=== PATIENT | male | born 1975 | race African-American/Black ===

== ENCOUNTER 2019-03-18 20:44 | Inpatient (IN) | payer OTHER, SELFPAY ==
[~2019-03-18 20:44] MED LIST: Iopamidol-370 76% 500 ML 1 ML ONE
[2019-03-18] MEDS ORDERED: Adacel (T-DAP) 0.5 ML SYRINGE ONE (20:52)
[2019-03-18 21:13] LABS: Hemoglobin 13.7 g/dL (14.0-18.0); Mean Corpuscular HGB CONC 31.9 g/dL (32.0-36.0); Mean Corpuscular Hemoglobin 22.4 pg (27.0-31.0); Mean Corpuscular Volume 70.3 fL (78.0-98.0); RBC Distribution Width 14.6 % (11.5-14.5); Red Blood Cell (RBC) Count 6.12 mill/uL (4.70-6.10)
[2019-03-18 21:15] LABS: INR-International Normal Ratio 1.1; PTT 26.4 SEC (22.9-36.1); Prothrombin Time 14.3 SEC (12.0-14.7)
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
[2019-03-18 21:25] LABS: ALT (SGPT) 129 U/L (8-55); AST (SGOT) 127 U/L (5-34); Albumin 4.4 g/dL (3.5-5.0); Alcohol 233 mg/dL (Less than 10); Alkaline Phosphatase 66 U/L (40-110); Anion Gap 20 mmol/L (10-20); BUN (Urea Nitrogen) 12 mg/dL (8.9-20.6); Bilirubin, Total 0.8 mg/dL (0.2-1.2); Calc. Creatinine Clearance 0 mL/min (70-130); Calcium 7.8 mg/dL (7.8-10.44); Carbon Dioxide 16 mmol/L (22-29); Chloride 108 mmol/L (98-107); Estimated GFR-MDRD Greater than 90; Globulin 2.6 g/dL (2.4-3.5); Glucose 112 mg/dL (70-105); Lipase 82 U/L (8-78); Potassium 3.6 mmol/L (3.5-5.1); Sodium 140 mmol/L (136-145)
[2019-03-18] MEDS ORDERED: Fentanyl 100 MCG/2 ML VIAL ONE ×2 (21:25→21:44)
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
[2019-03-18 21:28] LABS: Band 8 % (5-11); Lymphocytes 28 % (21-51); MDiff Complete? YES; Mean Platelet Volume 8.3 fL (7.4-10.4); Monocytes 5 % (0-10); Neutrophil 59 % (42-75); Platelet Count 279 thou/uL (130-400); RBC Morphology Normal; White Blood Cell (WBC) Count 23.4 thou/uL (4.8-10.8)
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
[2019-03-18] MEDS ORDERED: fentaNYL Citrate/PF 2,000 MCG in Sodium Chloride 0.9% 60 ML IV SCH (21:29)
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
[2019-03-18] MEDS ORDERED: Piperacillin/Tazobactam 4.5 GM VIAL ONE (21:55)
[2019-03-18 22:12] LABS: Actual Bicarbonate (HCO3a) 16.5 mEq/L (22-28); Analyzer IN Cardio ER; Base Excess (BEa) -12.8 mEq/L (-2.0 to +3.0); CO2 Tension 51.5 mmHg (35.0-45.0); Calcium, Ionized 1.07 mmol/L (1.12-1.30); Carboxyhemoglobin (COHb) 2.8 gm% (0.0-3.0); Hemoglobin (Hb) 13.7 g/dL (14.0-18.0); O2 Tension (PaO2) 69.9 mmHg (80.0-100.0); Potassium - ABG Lab 3.66 mmol/L (3.70-5.30)
[2019-03-18 22:15] LABS: Puncture Site RR; pH, Arterial 7.12 (7.35-7.45)
[2019-03-18 22:16] LABS: ALV-art Gradient 222.225 (0-20)
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
[2019-03-18] MEDS ORDERED: hydrALAZINE 20 MG/ML VIAL SLOW IVP PRN (22:21)
[2019-03-18] MEDS ORDERED: Dextrose 5% in Water 1,000 ML IV PRN (22:21)
[2019-03-18] MEDS ORDERED: Dextrose 50% Abboject 50 ML SYRINGE SLOW IVP PRN (22:21)
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
[2019-03-18] MEDS ORDERED: Ventilator Sedation Protocol 1 EACH FS ONE (22:27)
[2019-03-18] MEDS ORDERED: Sodium Chloride 0.9% 1,000 ML IV SCH (22:30)
[2019-03-18] MEDS ORDERED: Fentanyl BOLUS 250 ML IVPB PRN (22:34)
[2019-03-18] MEDS ORDERED: Propofol 1,000 MG/100 ML VIAL IV PRN (22:34)
[2019-03-18] MEDS ORDERED: Morphine 2 MG/ML SYRINGE SLOW IVP PRN (22:34)
[2019-03-18] MEDS ORDERED: Propofol BOLUS 1,000 MG/100 ML VIAL IV PRN (22:34)
[2019-03-18] MEDS ORDERED: DISCONTINUE PREVIOUS NARCOTIC PAIN MEDICATIONS AND BENZODIAZEPINES FS SCH (22:34)
[2019-03-18 22:52] LABS: Phosphorus 4.9 mg/dL (2.3-4.7)
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
--- NOTE | 2019-03-18 23:00 | OP ---
DATE OF PROCEDURE: 03/18/2019 PREOPERATIVE DIAGNOSES: 1. A 3 cm laceration, left eyelid. 2 cm laceration to left scalp and 2 cm laceration to posterior ear. 2. Open wound, right lower extremity. POSTOPERATIVE DIAGNOSES: 1. A 3 cm laceration, left eyelid. 2 cm laceration to left scalp and 2 cm laceration to posterior ear. 2. Open wound, right lower extremity. PROCEDURES PERFORMED: Washout and closure of above lacerations. ANESTHESIA: Local. ESTIMATED BLOOD LOSS: Minimal. COMPLICATIONS: None. DESCRIPTION OF PROCEDURE: The right superior eyelid and laceration to the scalp just above were irrigated, prepped and draped in a sterile fashion. A 5-0 Prolene interrupted sutures were used to close them. The laceration to the left posterior was closed using laura. The open wound to the right lower extremity is probed and found to not go down to bone. There is muscle exposed. The wound was irrigated copiously until returns were clear. It was closed loosely using a 2-0 nylon suture and laura. Sterile dressings were placed. The patient tolerated the procedures well. Job ID: [id number]
[2019-03-18] MEDS: Ketorolac Tromethamine 30 MG/ML VIAL IVP SCH (23:09)
[2019-03-18] MEDS: Lorazepam 2 MG/ML VIAL SLOW IVP PRN (23:09)
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
[2019-03-19 02:05] LABS: Bacteria/HPF None Seen HPF (None Seen); Bilirubin Negative (Negative); Blood, Urine 3+ (Negative); Clarity Clear (Clear); Glucose, Urine (Dipstick) Normal (Negative); Leukocyte Negative Leu/uL (Negative); Nitrite Negative (Negative); Protein, Urine (Dipstick) 30 mg/dL (Neg-Trace); Squamous Epithelial 0-3 HPF (0-3); Urobilinogen Normal mg/dL (Less than 2)
[2019-03-19 02:15] LABS: Lactic Acid 6.4 mmol/L (0.5-2.2)
[2019-03-19] MEDS ORDERED: Multivit, Adult Inj 10 ML VIAL IV SCH (02:15)
[2019-03-19] MEDS ORDERED: Calcium Chloride 1 GM/10 ML Abboject SYRINGE IVP SCH (02:15)
[2019-03-19] MEDS ORDERED: Multivitamins, Adult 10 ML, Thiamine HCl 100 MG, Folic Acid 1 MG in Dextrose 5 %-0.45 %... IV SCH (02:30)
[2019-03-19 02:35] LABS: Amphetamine Not Detected (NotDetected); Barbiturates Screen Not Detected (NotDetected); Benzodiazepine Screen Detected (NotDetected); Cocaine Metabolite Screen Not Detected (NotDetected); Medtox Control Line Valid? VALID (VALID); Medtox Reader # READER 4; Methadone Not Detected (NotDetected); Methamphetamine Not Detected (NotDetected); Opiate Screen Not Detected (NotDetected); Oxycodone Screen Not Detected (NotDetected); Phencyclidine (PCP) Not Detected (NotDetected); THC/Cannabinoid Screen Not Detected (NotDetected); Tricyclic Screen Not Detected (NotDetected)
[2019-03-19] MEDS ORDERED: Sodium Chloride 0.9% 500 ML IV SCH (03:00)
--- NOTE | 2019-03-19 03:02 | OP ---
DATE OF PROCEDURE: 03/18/2019 PREOPERATIVE DIAGNOSIS: A 6 cm laceration to right buttock. PROCEDURE PERFORMED: Washout and closure of the wound. ANESTHESIA: Local. ESTIMATED BLOOD LOSS: Minimal. COMPLICATIONS: None. DESCRIPTION OF PROCEDURE: The right buttock laceration was irrigated and prepped and draped in a sterile fashion. A 2-0 Prolene interrupted suture was used to close the wound. The patient tolerated the procedure well. Job ID: [id number]
[2019-03-19] MEDS ORDERED: Potassium Chloride 40 MEQ in Premix Bag 1 BAG IVPB SCH (03:15)
[2019-03-19] MEDS ORDERED: Lactated Ringer's 500 ML IV SCH (03:15)
[2019-03-19] MEDS: Lorazepam 2 MG/ML VIAL SLOW IVP PRN ×2 (03:20→05:32)
[2019-03-19] MEDS: Piperacillin/Tazobactam 3.375 GM in Sodium Chloride 0.9% 100 ML IVPB SCH ×4 (03:24→22:26)
[2019-03-19] MEDS ORDERED: Lactated Ringer's 1,000 ML IV SCH (03:30)
[2019-03-19 04:49] LABS: Phosphorus 5.3 mg/dL (2.3-4.7)
[2019-03-19 04:52] LABS: Anion Gap 18 mmol/L (10-20); BUN (Urea Nitrogen) 13 mg/dL (8.9-20.6); Calc. Creatinine Clearance 168 mL/min (70-130); Calcium 8.7 mg/dL (7.8-10.44); Carbon Dioxide 17 mmol/L (22-29); Chloride 110 mmol/L (98-107); Estimated GFR-MDRD 88; Glucose 129 mg/dL (70-105); Magnesium 1.7 mg/dL (1.6-2.6); Potassium 4.2 mmol/L (3.5-5.1); Sodium 141 mmol/L (136-145)
[2019-03-19 05:05] LABS: Band 16 % (5-11); Eosinophils 1 % (0-10); Hemoglobin 12.8 g/dL (14.0-18.0); Lymphocytes 16 % (21-51); MDiff Complete? YES; Mean Corpuscular HGB CONC 32.4 g/dL (32.0-36.0); Mean Corpuscular Hemoglobin 22.6 pg (27.0-31.0); Mean Corpuscular Volume 69.8 fL (78.0-98.0); Mean Platelet Volume 8.4 fL (7.4-10.4); Microcytosis SLIGHT = 6-15 cells (100X) (0-5/hpf); Monocytes 8 % (0-10); Neutrophil 58 % (42-75); Platelet Count 289 thou/uL (130-400); Platelet Morphology Comment Appears Adequate; RBC Distribution Width 14.4 % (11.5-14.5); Reactive Lymphocytes 1 % (0-10); Red Blood Cell (RBC) Count 5.65 mill/uL (4.70-6.10); White Blood Cell (WBC) Count 14.8 thou/uL (4.8-10.8)
[2019-03-19] MEDS: Ketorolac Tromethamine 30 MG/ML VIAL IVP SCH ×4 (05:33→23:27)
[2019-03-19] MEDS ORDERED: Propofol BOLUS 1,000 MG/100 ML VIAL IV PRN (06:56)
[2019-03-19] MEDS ORDERED: Acetaminophen 650 MG Suppository PR PRN (06:59)
[2019-03-19] MEDS: Propofol 1,000 MG/100 ML VIAL IV PRN ×4 (07:23→15:14)
[2019-03-19 07:49] LABS: Actual Bicarbonate (HCO3a) 21.5 mEq/L (22-28); Base Excess (BEa) -3.1 mEq/L (-2.0 to +3.0); CO2 Tension 37.3 mmHg (35.0-45.0); Calcium, Ionized 1.14 mmol/L (1.12-1.30); Carboxyhemoglobin (COHb) 1.1 gm% (0.0-3.0); Hemoglobin (Hb) 13.4 g/dL (14.0-18.0); O2 Tension (PaO2) 114.1 mmHg (80.0-100.0); Potassium - ABG Lab 4.77 mmol/L (3.70-5.30); pH, Arterial 7.38 (7.35-7.45)
[2019-03-19] MEDS: Acetaminophen 650 MG/20.3 ML UDCUP PO SCH ×4 (08:06→19:39)
[2019-03-19] MEDS: Oxazepam 10 MG CAP PO SCH ×3 (08:06→23:27)
[2019-03-19] MEDS: Lactated Ringer's 1,000 ML IV SCH ×3 (08:07→16:42)
[2019-03-19 08:10] LABS: ALV-art Gradient 267.075 (0-20); Puncture Site L.R.
--- NOTE | 2019-03-19 08:41 | RAD ---
EXAM: Portable chest PROVIDED CLINICAL HISTORY: Respiratory insufficiency COMPARISON: 03/18/2019 FINDINGS: Mild improvement in bilateral perihilar airspace disease. Additional significant interval change with respect to the prior examination is not apparent. IMPRESSION: As above.
[2019-03-19] MEDS: Famotidine/PF 20 mg/2ml Vial SLOW IVP SCH ×2 (09:03→22:05)
[2019-03-19] MEDS: Folic Acid 1 MG TAB PO SCH (09:03)
[2019-03-19] MEDS: Silver Sulfadiazine 1% Cream 50 GM JAR TOP SCH ×2 (09:03→22:09)
[2019-03-19] MEDS: Multivitamin W/ Minerals 1 TAB PO SCH (09:03)
[2019-03-19] MEDS: Thiamine 100 MG TAB PO SCH (09:03)
[2019-03-19 10:19] LABS: Lactic Acid 2.1 mmol/L (0.5-2.2)
[2019-03-19] MEDS ORDERED: Acetaminophen/Codeine 30-300mg Tablet PO PRN (13:29)
[2019-03-19] MEDS: Gabapentin 300 MG CAP PO SCH ×2 (14:37→22:05)
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
[2019-03-19] MEDS: Acetaminophen/Codeine 30-300mg Tablet PO PRN (20:09)
[2019-03-19] MEDS: Senokot S 8.6-50 MG TAB PO SCH (22:05)
[2019-03-20] MEDS: Lidocaine 5% Patch TD SCH (00:10)
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
[2019-03-20] MEDS: Acetaminophen 650 MG/20.3 ML UDCUP PO SCH ×2 (01:33→07:50)
[2019-03-20] MEDS: Acetaminophen/Codeine 30-300mg Tablet PO PRN ×4 (03:41→21:18)
[2019-03-20] MEDS: Lactated Ringer's 1,000 ML IV SCH ×4 (03:45→17:11)
[2019-03-20] MEDS: Piperacillin/Tazobactam 3.375 GM in Sodium Chloride 0.9% 100 ML IVPB SCH (04:05)
[2019-03-20] MEDS: Ketorolac Tromethamine 30 MG/ML VIAL IVP SCH (05:25)
[2019-03-20] MEDS: Oxazepam 10 MG CAP PO SCH ×4 (07:50→23:09)
[2019-03-20] MEDS: Folic Acid 1 MG TAB PO SCH (07:51)
[2019-03-20] MEDS: Famotidine 20 MG TAB PO SCH ×2 (07:51→20:44)
[2019-03-20] MEDS: Gabapentin 300 MG CAP PO SCH ×3 (07:51→20:44)
[2019-03-20] MEDS: Polyethylene Glycol 3350 17 GM Packet PO SCH (07:53)
[2019-03-20] MEDS: Multivitamin W/ Minerals 1 TAB PO SCH (07:53)
[2019-03-20] MEDS: Senokot S 8.6-50 MG TAB PO SCH ×2 (07:54→20:44)
[2019-03-20] MEDS: Silver Sulfadiazine 1% Cream 50 GM JAR TOP SCH ×2 (07:55→20:45)
[2019-03-20] MEDS: Thiamine 100 MG TAB PO SCH (07:55)
[2019-03-20 08:09] LABS: Hemoglobin 10.7 g/dL (14.0-18.0); Mean Corpuscular Hemoglobin 23.3 pg (27.0-31.0); Mean Corpuscular Volume 70.5 fL (78.0-98.0); Mean Platelet Volume 8.1 fL (7.4-10.4); Platelet Count 200 thou/uL (130-400); RBC Distribution Width 14.1 % (11.5-14.5); Red Blood Cell (RBC) Count 4.59 mill/uL (4.70-6.10); White Blood Cell (WBC) Count 9.8 thou/uL (4.8-10.8)
[2019-03-20 08:10] LABS: Anion Gap 11 mmol/L (10-20); BUN (Urea Nitrogen) 9 mg/dL (8.9-20.6); CK (CPK) 5105 U/L (30-200); Calc. Creatinine Clearance 200 mL/min (70-130); Calcium 8.2 mg/dL (7.8-10.44); Carbon Dioxide 24 mmol/L (22-29); Chloride 106 mmol/L (98-107); Estimated GFR-MDRD Greater than 90; Glucose 118 mg/dL (70-105); Magnesium 1.8 mg/dL (1.6-2.6); Phosphorus 2.5 mg/dL (2.3-4.7); Potassium 3.6 mmol/L (3.5-5.1); Sodium 137 mmol/L (136-145)
[2019-03-20 08:43] LABS: Band 28 % (5-11); Eosinophils 2 % (0-10); Hypochromia SLIGHT = 6-15 cells (100X) (0-5/hpf); Lymphocytes 20 % (21-51); MDiff Complete? YES; Microcytosis MODERATE=15-30 cells (100X) (0-5/hpf); Monocytes 2 % (0-10); Neutrophil 48 % (42-75); Platelet Morphology Comment Appears Adequate; Polychromasia SLIGHT = 2-3 cells (100X) (0-2/hpf)
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
[2019-03-20] MEDS: Enoxaparin Sodium 30 MG/0.3 ML SYRINGE SC SCH ×2 (09:19→20:44)
[2019-03-20] MEDS: cefTRIAXone\\ROCEPHIN 2 GM in Sodium Chloride 0.9% 100 ML IVPB SCH (09:19)
--- NOTE | 2019-03-20 09:43 | RAD ---
PORTABLE UPRIGHT FRONTAL CHEST RADIOGRAPH: Date: 03/20/2019 COMPARISON: 03/19/2019. HISTORY: Possible aspiration. FINDINGS: The endotracheal tube and nasogastric tube have been removed since the prior exam. There is a stable left-sided vascular catheter. There is patchy nonspecific air space disease in the right infrahilar r egion, slightly worsened. There is also hazy nonspecific increased density in the left perihilar otoniel on and left lung base, slightly worsened since the prior exam. IMPRESSION: Worsening perihilar density, left greater than right. Findings may be on the basis of aspiration or v olume loss. Recommend follow-up PA and lateral imaging of the chest following treatment to document r esolution. POS: NOEMY
[2019-03-20] MEDS ORDERED: Magnesium 2 GM/50 ML 2 GM in Premix Bag 1 BAG IVPB SCH (10:45)
[2019-03-20] MEDS ORDERED: Potassium Phosphate 15 MMOL in Sodium Chloride 0.9% 250 ML 250 ML IVPB SCH (10:45)
--- NOTE | 2019-03-20 11:08 | RAD ---
Left shoulder 3 views: 03/20/2019 COMPARISON: None HISTORY: Trauma FINDINGS: There is nonspecific incompletely imaged airspace disease within the visualized left lung. Incompletely imaged left-sided vascular catheter. Moderate glenohumeral degenerative change. Mild degenerative change of left acromioclavicular joint. No displaced clavicle fracture. No acute fractur e or dislocation at the level of the left shoulder. IMPRESSION: No displaced fracture or evidence of dislocation seen.
[2019-03-20] MEDS: Acetaminophen/Codeine 30-300mg Tablet PO SCH ×3 (11:09→21:18)
--- NOTE | 2019-03-20 11:29 | RAD ---
2 VIEWS LEFT HUMERUS: Date: 03/20/2019 PROVIDED CLINICAL HISTORY: Pain status post injury. FINDINGS: Evaluation is limited as the examination was performed in the portable manner. There is no gross evid ence for fracture. If there is persistent clinical concern, conservative management and follow-up marvin ging are advised. IMPRESSION: As above. POS: OFF
[2019-03-20] MEDS ORDERED: Acetaminophen 500 MG TAB PO SCH (12:00)
[2019-03-20] MEDS: Acetaminophen 325 MG TAB PO SCH ×3 (12:16→23:24)
[2019-03-20] MEDS: cloNIDine 0.1 MG TAB PO SCH ×3 (12:28→23:11)
[2019-03-20] MEDS: Lidocaine Patch Removal 1 EACH TOP SCH (12:37)
[2019-03-20 14:25] VITALS: BMI 40.8
[2019-03-20] MEDS: Cyclobenzaprine 10 MG TAB PO PRN (18:09)
[2019-03-20] MEDS ORDERED: Polyethylene Glycol 3350 17 GM Packet PO SCH (20:45)
--- NOTE | 2019-03-21 00:14 | PRG ---
DATE OF SERVICE: 03/20/2019 SUBJECTIVE: The patient was seen this evening on the surgical floor. The patient is currently awake, alert, in no distress. The patient continues to have some moderate right-sided rib pain. The patient reports feeling constipated and needing something more for the constipation. He states that he usually has several bowel movements a day. The patient has not had a bowel movement since admission. The patient remains with a well-fitting Mead collar in place. OBJECTIVE: VITAL SIGNS: Stable, afebrile. GENERAL: Middle aged gentleman, moderate distress due to pain. RESPIRATORY: Equal chest rise and fall, expiratory wheezes noted. PLAN: Continue supportive care. We will have RT give a breathing treatment now, as the patient has been wheezing. Continue to monitor urinary output. Continue maintenance fluids LR at 200 mL/hour as his CK is elevated still. We will increase the patient's bowel regimen and add lactulose until patient has a bowel movement. The MRI of C-spine was unable to be done due to patient's size. I did explain to the patient and that we will continue Mead collar as long as he has pain and patient could get an MRI outpatient. I also explained that the patient does need to take the Serax as scheduled due to him having seizures when he drinks alcohol. Job ID: [id number] [facility]
[2019-03-21] MEDS: Lidocaine 5% Patch TD SCH (01:02)
[2019-03-21] MEDS: Lactated Ringer's 1,000 ML IV SCH ×4 (01:02→12:41)
[2019-03-21] MEDS: Acetaminophen/Codeine 30-300mg Tablet PO SCH ×5 (03:54→23:33)
[2019-03-21] MEDS: Acetaminophen 325 MG TAB PO SCH ×4 (05:34→23:32)
[2019-03-21] MEDS: cloNIDine 0.1 MG TAB PO SCH ×2 (05:35→11:44)
[2019-03-21 06:13] LABS: Anion Gap 11 mmol/L (10-20); BUN (Urea Nitrogen) 4 mg/dL (8.9-20.6); CK (CPK) 3440 U/L (30-200); Calc. Creatinine Clearance 237 mL/min (70-130); Calcium 8.2 mg/dL (7.8-10.44); Carbon Dioxide 27 mmol/L (22-29); Chloride 104 mmol/L (98-107); Estimated GFR-MDRD Greater than 90; Glucose 128 mg/dL (70-105); Magnesium 1.9 mg/dL (1.6-2.6); Phosphorus 2.7 mg/dL (2.3-4.7); Potassium 3.6 mmol/L (3.5-5.1); Sodium 138 mmol/L (136-145)
[2019-03-21 06:14] LABS: Band 16 % (5-11); Eosinophils 3 % (0-10); Hemoglobin 10.1 g/dL (14.0-18.0); Lymphocytes 27 % (21-51); MDiff Complete? YES; Mean Corpuscular HGB CONC 31.9 g/dL (32.0-36.0); Mean Corpuscular Hemoglobin 22.4 pg (27.0-31.0); Mean Corpuscular Volume 70.2 fL (78.0-98.0); Mean Platelet Volume 8.9 fL (7.4-10.4); Monocytes 11 % (0-10); Neutrophil 43 % (42-75); Platelet Count 201 thou/uL (130-400); RBC Distribution Width 13.9 % (11.5-14.5); Red Blood Cell (RBC) Count 4.49 mill/uL (4.70-6.10); White Blood Cell (WBC) Count 10.5 thou/uL (4.8-10.8)
[2019-03-21] MEDS: Oxazepam 10 MG CAP PO SCH ×3 (06:43→23:32)
[2019-03-21] MEDS: cefTRIAXone\\ROCEPHIN 2 GM in Sodium Chloride 0.9% 100 ML IVPB SCH (08:23)
[2019-03-21] MEDS: Thiamine 100 MG TAB PO SCH (08:25)
[2019-03-21] MEDS: Polyethylene Glycol 3350 17 GM Packet PO SCH (08:25)
[2019-03-21] MEDS: Folic Acid 1 MG TAB PO SCH (08:25)
[2019-03-21] MEDS: Famotidine 20 MG TAB PO SCH ×2 (08:25→20:12)
[2019-03-21] MEDS: Multivitamin W/ Minerals 1 TAB PO SCH (08:25)
[2019-03-21] MEDS: Gabapentin 300 MG CAP PO SCH ×3 (08:25→20:12)
[2019-03-21] MEDS: Senokot S 8.6-50 MG TAB PO SCH ×2 (08:25→20:11)
[2019-03-21] MEDS: Enoxaparin Sodium 30 MG/0.3 ML SYRINGE SC SCH ×2 (08:25→20:16)
[2019-03-21] MEDS: Silver Sulfadiazine 1% Cream 50 GM JAR TOP SCH ×2 (08:57→20:12)
[2019-03-21] MEDS ORDERED: Polyethylene Glycol 3350 17 GM Packet PO SCH (09:00)
[2019-03-21] MEDS: Lidocaine Patch Removal 1 EACH TOP SCH (11:45)
[2019-03-21] MEDS: Ketorolac Tromethamine 30 MG/ML VIAL IVP SCH ×2 (11:50→20:12)
[2019-03-21] MEDS: Furosemide 20 MG/2 ML VIAL SLOW IVP SCH ×2 (13:06→21:23)
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
--- NOTE | 2019-03-21 13:36 | RAD ---
EXAM: 2 views of the left ankle HISTORY: Ankle pain COMPARISON: None FINDINGS: 3 views of the left ankle shows no evidence of acute fracture or dislocation. Moderate diff use soft tissue swelling is seen. No degenerative changes are present. IMPRESSION: No evidence of acute osseous abnormality.
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
[2019-03-21] MEDS ORDERED: Iopamidol-370 76% 500 ML 1 ML ONE (15:18)
[2019-03-21] MEDS ORDERED: Iopamidol 370 76% 50 ML VIAL FS ONE (15:18)
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
[2019-03-21] MEDS: cloNIDine 0.2 MG TAB PO SCH ×2 (17:34→23:33)
[2019-03-21] MEDS: Cyclobenzaprine 10 MG TAB PO PRN (17:34)
[2019-03-21] MEDS ORDERED: Lactated Ringer's 1,000 ML IV SCH (22:55)
[2019-03-22] MEDS: Lidocaine 5% Patch TD SCH (00:21)
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
[2019-03-22] MEDS: Ketorolac Tromethamine 30 MG/ML VIAL IVP SCH ×2 (04:05→11:49)
[2019-03-22] MEDS: Acetaminophen/Codeine 30-300mg Tablet PO SCH ×2 (05:42→11:48)
[2019-03-22] MEDS: cloNIDine 0.2 MG TAB PO SCH ×2 (05:42→11:45)
[2019-03-22] MEDS: Acetaminophen 325 MG TAB PO SCH ×2 (05:42→11:48)
[2019-03-22] MEDS: Furosemide 20 MG/2 ML VIAL SLOW IVP SCH (05:42)
[2019-03-22] MEDS: Cyclobenzaprine 10 MG TAB PO PRN ×2 (05:42→15:00)
[2019-03-22 06:07] LABS: #Eosinphils 0.4 thou/uL (0.0-0.7); #Lymphocytes 2.3 thou/uL (1.20-3.40); #Monocytes 0.6 thou/uL (0.11-0.59); %Basophils 0.2 % (0.0-1.0); %Eosinophils 4.9 % (0.0-10.0); %Lymphocytes 27.5 % (21.0-51.0); %Monocytes 7.4 % (0.0-10.0); %Neutrophils 60.1 % (42.0-75.0); Hemoglobin 9.3 g/dL (14.0-18.0); Mean Corpuscular Hemoglobin 22.7 pg (27.0-31.0); Mean Corpuscular Volume 70.9 fL (78.0-98.0); Mean Platelet Volume 8.3 fL (7.4-10.4); Platelet Count 212 thou/uL (130-400); RBC Distribution Width 13.9 % (11.5-14.5); White Blood Cell (WBC) Count 8.3 thou/uL (4.8-10.8)
[2019-03-22 06:35] LABS: Anion Gap 10 mmol/L (10-20); BUN (Urea Nitrogen) 4 mg/dL (8.9-20.6); CK (CPK) 2107 U/L (30-200); Calc. Creatinine Clearance 223 mL/min (70-130); Calcium 8.2 mg/dL (7.8-10.44); Carbon Dioxide 29 mmol/L (22-29); Chloride 101 mmol/L (98-107); Estimated GFR-MDRD Greater than 90; Glucose 147 mg/dL (70-105); Magnesium 1.9 mg/dL (1.6-2.6); Phosphorus 3.9 mg/dL (2.3-4.7); Potassium 3.2 mmol/L (3.5-5.1); Sodium 137 mmol/L (136-145)
[2019-03-22] MEDS ORDERED: Potassium Phosphate 30 MMOL in Sodium Chloride 0.9% 250 ML 250 ML IVPB SCH (06:45)
[2019-03-22] MEDS ORDERED: Potassium Phosphate 15 MMOL in Sodium Chloride 0.9% 250 ML 250 ML IVPB SCH (06:45)
[2019-03-22] MEDS: Oxazepam 10 MG CAP PO SCH (07:30)
[2019-03-22] MEDS: Folic Acid 1 MG TAB PO SCH (08:58)
[2019-03-22] MEDS: Thiamine 100 MG TAB PO SCH (08:58)
[2019-03-22] MEDS: Senokot S 8.6-50 MG TAB PO SCH (08:58)
[2019-03-22] MEDS: Gabapentin 300 MG CAP PO SCH ×2 (08:58→15:00)
[2019-03-22] MEDS: cefTRIAXone\\ROCEPHIN 2 GM in Sodium Chloride 0.9% 100 ML IVPB SCH (08:58)
[2019-03-22] MEDS: Multivitamin W/ Minerals 1 TAB PO SCH (08:58)
[2019-03-22] MEDS: Polyethylene Glycol 3350 17 GM Packet PO SCH (08:58)
[2019-03-22] MEDS: Enoxaparin Sodium 30 MG/0.3 ML SYRINGE SC SCH (08:58)
[2019-03-22] MEDS: Famotidine 20 MG TAB PO SCH (08:58)
[2019-03-22] MEDS ORDERED: Furosemide 20 MG/2 ML VIAL SLOW IVP SCH (10:00)
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
[2019-03-22 11:48] VITALS: BP 128/83; TEMP 97.7
[2019-03-22] MEDS: Silver Sulfadiazine 1% Cream 50 GM JAR TOP SCH (11:50)
[2019-03-22] MEDS: Lidocaine Patch Removal 1 EACH TOP SCH (11:51)
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
== END 2019-03-22 15:39 | disposition home or self-care (01) | DRG 208 ==
LOC: ERS 20:44 → CCU 21:02 → SURG B 03-20 10:59
PROVIDERS: ADMIT Surgery; ATTEND Surgery
PROC: 05H633Z Insertion of Infusion Device into Left Subclavian Vein, Percutaneous Approach (ICD-10-PCS; principal; 2019-03-18)
PROC: 5A1935Z Respiratory Ventilation, Less than 24 Consecutive Hours (ICD-10-PCS; 2019-03-18)
PROC: 08QNXZZ Repair Right Upper Eyelid, External Approach (ICD-10-PCS; 2019-03-18)
PROC: 0HQ3XZZ Repair Left Ear Skin, External Approach (ICD-10-PCS; 2019-03-18)
PROC: 0HQ0XZZ Repair Scalp Skin, External Approach (ICD-10-PCS; 2019-03-18)
PROC: 0HQ8XZZ Repair Buttock Skin, External Approach (ICD-10-PCS; 2019-03-18)
PROC: 0HQKXZZ Repair Right Lower Leg Skin, External Approach (ICD-10-PCS; 2019-03-18)
PROC: 0BH17EZ Insertion of Endotracheal Airway into Trachea, Via Natural or Artificial Opening (ICD-10-PCS; 2019-03-18)
DX: S27.322A Contusion of lung, bilateral, initial encounter (principal); J18.1 Lobar pneumonia, unspecified organism; J69.0 Pneumonitis due to inhalation of food and vomit; J96.90 Respiratory failure, unspecified, unspecified whether with hypoxia or hypercapnia; S02.832A Fracture of medial orbital wall, left side, initial encounter for closed fracture; S22.41XA Multiple fractures of ribs, right side, initial encounter for closed fracture; M62.82 Rhabdomyolysis; S01.112A Laceration without foreign body of left eyelid and periocular area, initial encounter; S01.01XA Laceration without foreign body of scalp, initial encounter; S01.312A Laceration without foreign body of left ear, initial encounter; S31.811A Laceration without foreign body of right buttock, initial encounter; S81.811A Laceration without foreign body, right lower leg, initial encounter; G40.909 Epilepsy, unspecified, not intractable, without status epilepticus; I10 Essential (primary) hypertension; V03.99XA Pedestrian with other conveyance injured in collision with car, pick-up truck or van, unspecified whether traffic or nontraffic accident, initial encounter; Y93.89 Activity, other specified; Y92.89 Other specified places as the place of occurrence of the external cause; E87.6 Hypokalemia
CPT/HCPCS: 36415; 36556; 51702; 70450; 70486; 71045; 71260; 72125; 72170; 74177; 80048; 80053; 80306; 80307; 81003; 81015; 82550; 82805; 83605; 83690; 83735; 84100; 85007; 85025; 85027; 85610; 85730; 86850; 86900; 86901; 87070; 87086; 87205; 90471; 90715; 94002; 94003; 96365; 96367; 96368; 96376; G0390; J0690; J0696; J1650; J1885; J1940; J2060; J2543; J2704; J3010; J3411; J3475; J3480; J3490; J7042; J7050; J7620; L0120; Q9967; S0028

== ENCOUNTER 2019-03-28 15:39 | Outpatient (CLI) | payer OTHER ==
--- NOTE | 2019-03-28 16:33 | ULT ---
EXAM: Bilateral lower extremity venous ultrasound HISTORY: Bilateral lower extremity pain and edema COMPARISON: None TECHNIQUE: Multiplanar grayscale and color Doppler images were obtained in a bilateral lower extremit y venous ultrasound. Spectral analysis of the Doppler waveforms were performed. FINDINGS: The bilateral common femoral vein, profunda femoral veins, superficial femoral veins, and p opliteal veins are normal in appearance without visible thrombus. These vessels demonstrate normal compression, flow, and augmentation. The bilateral posterior tibial veins and greater saphenous veins are patent without evidence of throm bus. IMPRESSION: No evidence of DVT.
== END 2019-03-28 15:40 | disposition home or self-care (01) ==
LOC: BICULT 15:39
PROVIDERS: ATTEND Surgery
DX: M62.82 Rhabdomyolysis (principal)
CPT/HCPCS: 93970

== ENCOUNTER 2019-11-05 04:34 | Emergency (ER) | payer OTHER ==
[2019-11-05 05:19] LABS: Bilirubin Negative (Negative); Blood, Urine Negative (Negative); Clarity Clear (Clear); Glucose, Urine (Dipstick) Greater than 1000 mg/dL (Negative); Ketone, Urine 20 mg/dL (Negative); Leukocyte Negative Leu/uL (Negative); Nitrite Negative (Negative); Protein, Urine (Dipstick) Negative (Neg-Trace); Specific Gravity, Urine 1.017 (1.002-1.036); Urobilinogen Normal mg/dL (Less than 2)
[2019-11-05 06:09] LABS: Hemoglobin 14.3 g/dL (14.0-18.0); Mean Corpuscular HGB CONC 32.2 g/dL (32.0-36.0); Mean Corpuscular Hemoglobin 22.9 pg (27.0-31.0); Mean Corpuscular Volume 71.1 fL (78.0-98.0); Mean Platelet Volume 8.5 fL (7.4-10.4); Platelet Count 276 thou/uL (130-400); RBC Distribution Width 14.9 % (11.5-14.5); Red Blood Cell (RBC) Count 6.25 mill/uL (4.70-6.10); White Blood Cell (WBC) Count 9.6 thou/uL (4.8-10.8)
[2019-11-05 06:20] LABS: ALT (SGPT) 27 U/L (8-55); AST (SGOT) 28 U/L (5-34); Albumin 4.2 g/dL (3.5-5.0); Alcohol 178 mg/dL (Less than 10); Alkaline Phosphatase 92 U/L (40-110); Anion Gap 22 mmol/L (10-20); BUN (Urea Nitrogen) 8 mg/dL (8.9-20.6); Bilirubin, Total 0.4 mg/dL (0.2-1.2); CK (CPK) 136 U/L (30-200); Calc. Creatinine Clearance 0 mL/min (70-130); Calcium 8.4 mg/dL (7.8-10.44); Carbon Dioxide 16 mmol/L (22-29); Chloride 102 mmol/L (98-107); Estimated GFR-MDRD Greater than 90; Globulin 2.7 g/dL (2.4-3.5); Glucose 408 mg/dL (70-105); Potassium 4.1 mmol/L (3.5-5.1); Protein, Total 6.9 g/dL (6.0-8.3); Sodium 136 mmol/L (136-145)
[2019-11-05 06:40] LABS: #Basophils 0.1 thou/uL (0.0-0.2); #Eosinphils 0.1 thou/uL (0.0-0.7); #Lymphocytes 3.8 thou/uL (1.20-3.40); #Monocytes 0.5 thou/uL (0.11-0.59); #Neutrophils 5.2 thou/uL (1.40-6.50); %Basophils 0.7 % (0.0-1.0); %Eosinophils 0.7 % (0.0-10.0); %Lymphocytes 39.5 % (21.0-51.0); %Monocytes 4.9 % (0.0-10.0); %Neutrophils 54.2 % (42.0-75.0); MDiff Complete? YES; Microcytosis SLIGHT = 6-15 cells (100X) (0-5/hpf); Platelet Morphology Comment Appears Adequate
--- NOTE | 2019-11-05 10:21 | CT ---
PRELIMINARY REPORT/[facility]/EMERGENCY AFTER HOURS PROCEDURE: EXAM: CT Abdomen and Pelvis Without Intravenous Contrast CLINICAL HISTORY: Pt c/o right flank and RLQ abdominal pain TECHNIQUE: Axial computed tomography images of the abdomen and pelvis without intravenous contrast. CONTRAST: None. COMPARISON: None provided. FINDINGS: LUNG BASES: No basilar airspace consolidation or pleural effusion. LIVER: Unremarkable. GALLBLADDER AND BILE DUCTS: Unremarkable. No calcified stone. No ductal dilation. PANCREAS: Unremarkable. SPLEEN: Unremarkable. ADRENAL GLANDS: Unremarkable. KIDNEYS, URETERS, AND BLADDER: Unremarkable. No hydronephrosis or nephrolithiasis. No ureteral or aileen dder calculi. STOMACH AND BOWEL: No obstruction. No wall thickening. No CT evidence of colitis or acute diverticuli tis. APPENDIX: The appendix appears normal. PERITONEUM: No free fluid. No free air. LYMPH NODES: No lymphadenopathy. REPRODUCTIVE: Unremarkable as visualized. VASCULATURE: No aortic aneurysm. ABDOMINAL WALL AND SOFT TISSUES: Unremarkable. BONES: No fracture or suspicious osseous abnormality. IMPRESSION: No acute intra-abdominal or pelvic abnormality. ELECTRONICALLY SIGNED BY: Sandoval Torres MD Nov 05, 2019 5:50:13 AM CDT FINAL REPORT CT ABDOMEN AND PELVIS WITHOUT CONTRAST: I agree with the preliminary report given by Dr. Sandoval Torres of [facility]. POS: OFF
== END 2019-11-05 06:30 | disposition home or self-care (01) ==
LOC: ERS 04:34
DX: F10.129 Alcohol abuse with intoxication, unspecified (principal); R10.9 Unspecified abdominal pain; R56.9 Unspecified convulsions; R10.813 Right lower quadrant abdominal tenderness; Z86.73 Personal history of transient ischemic attack (TIA), and cerebral infarction without residual deficits; F17.210 Nicotine dependence, cigarettes, uncomplicated; Y90.6 Blood alcohol level of 120-199 mg/100 ml
CPT/HCPCS: 36415; 74176; 80053; 80307; 81003; 82550; 85025

== ENCOUNTER 2022-06-07 21:41 | Inpatient (IN) | payer OTHER, SELFPAY ==
[2022-06-07] MEDS ORDERED: Ketamine In 0.9 % NaCl 50 MG/5 ML SYRINGE ONE ×2 (22:18→22:57)
[2022-06-07] MEDS ORDERED: levETIRAcetam 500 MG/5 ML VIAL ONE (23:11)
[2022-06-07 23:23] LABS: Actual Bicarbonate (HCO3v) 17 mEq/L (22-28); Base Excess -7.7 mEq/L (-2.0 to +3.0); Chloride (VBG) 104 mmol/L (98-106); Hemoglobin (Hb) 14.7 g/dL (13.1-17.2); Potassium (VBG) 3.61 mmol/L (3.70-5.30); Sodium 138.9 mmol/L (133-146); pH (venous) 7.34 (7.32-7.43)
[2022-06-07 23:44] LABS: ALT (SGPT) 29 U/L (8-55); AST (SGOT) 21 U/L (5-34); Albumin 4.5 g/dL (3.5-5.0); Alkaline Phosphatase 59 U/L (40-110); Anion Gap 20 mmol/L (10-20); BUN (Urea Nitrogen) 12 mg/dL (8.9-20.6); Bilirubin, Total 0.6 mg/dL (0.2-1.2); Calc. Creatinine Clearance 0 mL/min (70-130); Calcium 9.3 mg/dL (7.8-10.44); Carbon Dioxide 18 mmol/L (22-29); Chloride 107 mmol/L (98-107); Estimated GFR 102; Globulin 2.7 g/dL (2.4-3.5); Glucose 90 mg/dL (70-105); Potassium 3.7 mmol/L (3.5-5.1); Protein, Total 7.2 g/dL (6.0-8.3); Sodium 141 mmol/L (136-145)
[2022-06-07 23:46] LABS: Acetaminophen Less than 10.0 mcg/mL (10.0-30.0); Alcohol 116 mg/dL (Less than 10); Salicylate Less than 8.0 mg/dL (15.0-30.0)
[2022-06-07 23:51] LABS: Hemoglobin 14.5 g/dL (14.0-18.0); Mean Corpuscular HGB CONC 33.4 g/dL (32.0-36.0); Mean Corpuscular Hemoglobin 23.6 pg (27.0-31.0); Mean Corpuscular Volume 70.6 fl (78.0-98.0); Mean Platelet Volume 7.7 fL (7.4-10.4); Platelet Count 310 10x3/uL (130-400); RBC Distribution Width 14.8 % (11.5-14.5); Red Blood Cell (RBC) Count 6.14 mill/uL (4.70-6.10); White Blood Cell (WBC) Count 11.6 10x3/uL (4.8-10.8)
[2022-06-08 00:10] LABS: MDiff Complete? YES; Microcytosis SLIGHT = 6-15 cells (100X) (0-5/hpf)
[2022-06-08] MEDS ORDERED: Lorazepam 2 MG/ML VIAL SLOW IVP PRN (00:13)
[2022-06-08] MEDS ORDERED: Calcium Carbonate 500 MG ChewTAB PO PRN (00:16)
[2022-06-08] MEDS ORDERED: Ondansetron ODT 4 MG TAB PO PRN (00:16)
[2022-06-08] MEDS ORDERED: Acetaminophen 325 MG TAB PO PRN (00:16)
[2022-06-08] MEDS ORDERED: Acetaminophen 650 MG Suppository PR PRN (00:16)
[2022-06-08] MEDS ORDERED: Ondansetron PF 4 MG/2 ML Vial IVP PRN (00:16)
[2022-06-08 00:19] LABS: Band 1 % (5-11); Eosinophils 1 % (0-10); Lymphocytes 64 % (21-51); Monocytes 1 % (0-10); Neutrophil 30 % (42-75); Reactive Lymphocytes 3 % (0-10)
[2022-06-08] MEDS ORDERED: Dextrose 5%-Lactated Ringers 1,000 ML IV SCH (00:30)
[2022-06-08] MEDS ORDERED: Sodium Bicarb 50 MEQ/50 ML VIAL IVP SCH (00:30)
[2022-06-08 02:59] VITALS: BMI 41.2
[2022-06-08 06:44] LABS: Magnesium 1.8 mg/dL (1.6-2.6)
[2022-06-08 07:00] LABS: Amphetamine Not Detected (NotDetected); Barbiturates Screen Not Detected (NotDetected); Benzodiazepine Screen Not Detected (NotDetected); Cocaine Metabolite Screen Not Detected (NotDetected); Methadone Not Detected (NotDetected); Methamphetamine Not Detected (NotDetected); Opiate Screen Not Detected (NotDetected); Oxycodone Screen Not Detected (NotDetected); Phencyclidine (PCP) Not Detected (NotDetected); THC/Cannabinoid Screen Not Detected (NotDetected); Tricyclic Screen Not Detected (NotDetected)
[2022-06-08] MEDS: MULTIVIT/IRON SULF/FOLIC ACID 1 EACH TAB PO SCH (08:49)
[2022-06-08] MEDS: Famotidine 20 MG TAB PO SCH ×2 (08:49→21:34)
[2022-06-08] MEDS: levETIRAcetam 500 MG/5 ML VIAL SLOW IVP SCH ×2 (08:50→21:34)
[2022-06-08] MEDS: Famotidine/PF 20 mg/2ml Vial SLOW IVP SCH ×2 (09:36→21:34)
[2022-06-08 11:22] LABS: Hemoglobin A1c 5.9 % (4.0-6.0)
[2022-06-08 11:29] LABS: Cardiac Risk 4.6 (Less than 4.5)
[2022-06-08 15:35] LABS: #Basophils 0.1 thou/uL (0.0-0.2); #Eosinphils 0.3 thou/uL (0.0-0.7); #Lymphocytes 4.3 thou/uL (1.20-3.40); #Monocytes 0.7 thou/uL (0.11-0.59); #Neutrophils 5.9 thou/uL (1.40-6.50); %Basophils 0.7 % (0.0-1.0); %Eosinophils 2.7 % (0.0-10.0); %Lymphocytes 38.1 % (21.0-51.0); %Monocytes 6.4 % (0.0-10.0); %Neutrophils 52.1 % (42.0-75.0); Hemoglobin 14.2 g/dL (14.0-18.0); Mean Corpuscular HGB CONC 32.7 g/dL (32.0-36.0); Mean Corpuscular Volume 70.4 fl (78.0-98.0); Platelet Count 287 10x3/uL (130-400); RBC Distribution Width 14.6 % (11.5-14.5); Red Blood Cell (RBC) Count 6.19 mill/uL (4.70-6.10); White Blood Cell (WBC) Count 11.3 10x3/uL (4.8-10.8)
[2022-06-08] MEDS: Lactated Ringer's 1,000 ML IV SCH (15:59)
[2022-06-08 16:07] LABS: ALT (SGPT) 25 U/L (8-55); AST (SGOT) 20 U/L (5-34); Albumin 4.1 g/dL (3.5-5.0); Alkaline Phosphatase 61 U/L (40-110); Anion Gap 12 mmol/L (10-20); BUN (Urea Nitrogen) 15 mg/dL (8.9-20.6); Bilirubin, Total 0.7 mg/dL (0.2-1.2); Calc. Creatinine Clearance 128 mL/min (70-130); Calcium 9.4 mg/dL (7.8-10.44); Carbon Dioxide 25 mmol/L (22-29); Chloride 108 mmol/L (98-107); Estimated GFR 67; Globulin 2.6 g/dL (2.4-3.5); Glucose 95 mg/dL (70-105); Potassium 4.1 mmol/L (3.5-5.1); Protein, Total 6.7 g/dL (6.0-8.3); Sodium 141 mmol/L (136-145)
[2022-06-08] MEDS ORDERED: Atorvastatin Calcium 40 MG TAB PO SCH (21:00)
[2022-06-09] MEDS: Lactated Ringer's 1,000 ML IV SCH (03:04)
[2022-06-09 05:22] LABS: #Eosinphils 0.3 thou/uL (0.0-0.7); #Lymphocytes 3.8 thou/uL (1.20-3.40); #Monocytes 0.5 thou/uL (0.11-0.59); #Neutrophils 3.5 thou/uL (1.40-6.50); %Basophils 0.2 % (0.0-1.0); %Eosinophils 3.4 % (0.0-10.0); %Lymphocytes 47.2 % (21.0-51.0); %Monocytes 6.4 % (0.0-10.0); %Neutrophils 42.8 % (42.0-75.0); Hemoglobin 13.7 g/dL (14.0-18.0); Mean Corpuscular HGB CONC 30.7 g/dL (32.0-36.0); Mean Corpuscular Hemoglobin 21.8 pg (27.0-31.0); Platelet Count 293 10x3/uL (130-400); RBC Distribution Width 14.6 % (11.5-14.5); Red Blood Cell (RBC) Count 6.26 mill/uL (4.70-6.10); White Blood Cell (WBC) Count 8.1 10x3/uL (4.8-10.8)
[2022-06-09 05:46] LABS: Anion Gap 12 mmol/L (10-20); BUN (Urea Nitrogen) 17 mg/dL (8.9-20.6); Calc. Creatinine Clearance 191 mL/min (70-130); Carbon Dioxide 24 mmol/L (22-29); Chloride 108 mmol/L (98-107); Estimated GFR 107; Glucose 117 mg/dL (70-105); Potassium 3.8 mmol/L (3.5-5.1); Sodium 140 mmol/L (136-145)
[2022-06-09] MEDS: Famotidine 20 MG TAB PO SCH (08:34)
[2022-06-09] MEDS: MULTIVIT/IRON SULF/FOLIC ACID 1 EACH TAB PO SCH (08:35)
[2022-06-09] MEDS ORDERED: levETIRAcetam 500 MG TAB PO SCH (09:00)
[2022-06-09 09:11] VITALS: BP 132/89; TEMP 97.4
[2022-06-09] MEDS: Famotidine/PF 20 mg/2ml Vial SLOW IVP SCH (09:24)
== END 2022-06-09 10:33 | disposition home or self-care (01) | DRG 101 ==
LOC: ERS 21:41 → NEURO 23:24 → OBSVTOIN 06-08 15:42
PROVIDERS: ADMIT Student in an Organized Health Care Education/Training Program; ATTEND Hospitalist
DX: G40.909 Epilepsy, unspecified, not intractable, without status epilepticus (principal); E87.20 Acidosis, unspecified; N17.9 Acute kidney failure, unspecified; Z68.41 Body mass index [BMI] 40.0-44.9, adult; E66.9 Obesity, unspecified; G47.00 Insomnia, unspecified; E11.9 Type 2 diabetes mellitus without complications; I10 Essential (primary) hypertension; F10.129 Alcohol abuse with intoxication, unspecified; Y90.5 Blood alcohol level of 100-119 mg/100 ml; D50.9 Iron deficiency anemia, unspecified; F17.210 Nicotine dependence, cigarettes, uncomplicated; Z79.899 Other long term (current) drug therapy
CPT/HCPCS: 36415; 36416; 70551; 72131; 76999; 80048; 80053; 80061; 80306; 80307; 82805; 83036; 83735; 84146; 84443; 85025; 93005; 95712; 95819; 95957; 96365; 96375; G0378; J1953; J3490; J7120

== ENCOUNTER 2023-04-14 12:36 | Emergency (ER) | payer BC ==
[2023-04-14 13:05] LABS: Base Excess -1.3 mEq/L (-2.0 to +3.0); Chloride (VBG) 97 mmol/L (98-106); Hematocrit-VBG 44 % (42.0-52.0); Potassium (VBG) 4.68 mmol/L (3.70-5.30); Sodium 130 mmol/L (133-146); pH (venous) 7.404 (7.32-7.43)
[2023-04-14 13:12] LABS: #Eosinphils 0.1 thou/uL (0.0-0.7); #Monocytes 0.6 thou/uL (0.11-0.59); #Neutrophils 4.8 thou/uL (1.40-6.50); %Basophils 0.3 % (0.0-1.0); %Eosinophils 1.4 % (0.0-10.0); %Lymphocytes 42.8 % (21.0-51.0); %Monocytes 6.1 % (0.0-10.0); %Neutrophils 49.1 % (42.0-75.0); Hematocrit 44.1 % (42.0-52.0); Hemoglobin 14.7 g/dL (14.0-18.0); Mean Corpuscular HGB CONC 33.3 g/dL (32.0-36.0); Mean Corpuscular Hemoglobin 22.2 pg (27.0-31.0); Mean Corpuscular Volume 66.5 fl (78.0-98.0); Mean Platelet Volume 10.6 fL (7.4-10.4); Platelet Count 312 10x3/uL (130-400); RBC Distribution Width 14.8 % (11.5-14.5); Red Blood Cell (RBC) Count 6.63 mill/uL (4.70-6.10); White Blood Cell (WBC) Count 9.7 10x3/uL (4.8-10.8)
[2023-04-14 13:25] LABS: ALT (SGPT) 24 U/L (8-55); AST (SGOT) 19 U/L (5-34); Albumin 4.2 g/dL (3.5-5.0); Alkaline Phosphatase 117 U/L (40-110); Anion Gap 16 mmol/L (10-20); BUN (Urea Nitrogen) 14 mg/dL (8.9-20.6); Bilirubin, Total 0.6 mg/dL (0.2-1.2); Calc. Creatinine Clearance 0 mL/min (70-130); Calcium 9.8 mg/dL (7.8-10.44); Carbon Dioxide 21 mmol/L (22-29); Chloride 99 mmol/L (98-107); Estimated GFR 72; Globulin 3.2 g/dL (2.4-3.5); Potassium 4.5 mmol/L (3.5-5.1); Protein, Total 7.4 g/dL (6.0-8.3); Sodium 131 mmol/L (136-145)
[2023-04-14 13:39] LABS: Critical Call Chemistry NUR.CJM1 @1339; Glucose 543 mg/dL (70-105)
[2023-04-14] MEDS ORDERED: Insulin Regular 300 UNITS/3 ML VIAL ONE (16:29)
== END 2023-04-14 17:18 | disposition home or self-care (01) ==
LOC: ERS 12:36
DX: E11.65 Type 2 diabetes mellitus with hyperglycemia (principal); I10 Essential (primary) hypertension; R56.9 Unspecified convulsions; F17.210 Nicotine dependence, cigarettes, uncomplicated; Z79.4 Long term (current) use of insulin
CPT/HCPCS: 36415; 36416; 80053; 81001; 82010; 82805; 85025; 93005; 94760; 96360; 96361; 96372; J1815